=== PATIENT | female | born 1945 | race Caucasian/White ===

== ENCOUNTER → 2016-12-07 | Outpatient (CLI) | payer MEDICARE, BC ==
[2016-12-07 13:00] LABS: BICARBONATE 28.4 MEQ/L (21.0-32.0); POTASSIUM 4.2 MEQ/L (3.5-5.1); URIC ACID 4.5 MG/DL (2.6-6.0)
[2016-12-07 13:00] LABS: BLOOD, URINE NEG (NEG); GLUCOSE,URINE NEG (NEG); KETONE, URINE NEG (NEG); NITRITE,URINE NEG (NEG); PH, URINE 6.5 (5.0-8.5); URINE COLOR YELLOW (YELLW/STRAW)
[2016-12-07 13:27] LABS: FREE T3 2.26 PG/ML (2.18-3.98); FREE T4 0.83 NG/DL (0.76-1.46); HDL CHOLESTEROL 87.5 MG/DL (40.0-60.0)
[2016-12-08 23:51] LABS: THYROGLOB ABS LESS THAN 1 IU/mL (< OR = 1)
[2016-12-09 19:52] LABS: THYROGLOBULN 43.3 ng/mL (())
== END ==
LOC: CLAB 11:56
PROVIDERS: ATTEND Internal Medicine Endocrinology, Diabetes & Metabolism
DX: E11.65 Type 2 diabetes mellitus with hyperglycemia (principal); E06.3 Autoimmune thyroiditis; E03.9 Hypothyroidism, unspecified
CPT/HCPCS: 36415; 80048; 80061; 81001; 82533; 82607; 82747; 83735; 84432; 84439; 84443; 84445; 84481; 84550; 86376; 86800

== ENCOUNTER → 2017-02-01 | Outpatient (CLI) | payer MEDICARE, BC ==
[2017-02-01 13:48] LABS: BLOOD, URINE NEG (NEG); GLUCOSE,URINE 1000 mg/dL (NEG); KETONE, URINE NEG (NEG); NITRITE,URINE NEG (NEG); PH, URINE 6.5 (5.0-8.5); URINE COLOR LIGHT-YELLOW (YELLW/STRAW)
[2017-02-01 13:53] LABS: CREATININE RANDOM URINE LESS THAN 13 MG/DL (27-300)
[2017-02-01 13:56] LABS: ALKALINE PHOSPHATASE 82 U/L (45-117); ALT (GPT) 30 U/L (10-53); ANION GAP 9 MEQ/L (5-15); AST (GOT) 18 U/L (15-37); BICARBONATE 26.5 MEQ/L (21.0-32.0); BLOOD UREA NITROGEN 20 MG/DL (7-18); CHLORIDE 102 MEQ/L (98-107); GLOMERULAR FILTRATION RATE 47 ML/MIN (>89); GLUCOSE,FASTING 147 MG/DL (74-99); HDL CHOLESTEROL 83.2 MG/DL (40.0-60.0); LDL CHOLESTEROL 116 MG/DL (0-99); MAGNESIUM 2.3 MG/DL (1.5-2.5); SODIUM (NA) 137 MEQ/L (136-145); TOTAL BILIRUBIN ADULT 0.5 MG/DL (0.2-1.0)
[2017-02-01 14:02] LABS: MICRO ALBUMIN RANDOM URINE RAW LESS THAN 5.0 MG/L (0.0-30.0); MICROALBUMIN/CREAT RATIO RAND 0 MG/G CRE (0-30)
[2017-02-01 16:23] LABS: HEMOGLOBIN A1a 1.4 %; HEMOGLOBIN A1b 2.1 %; HEMOGLOBIN Ao 81.8 %; HEMOGLOBIN LA1C 2.5 %; HEMOGLOBIN P3 5.9 %
== END ==
LOC: CLAB 12:33
PROVIDERS: ATTEND Internal Medicine
DX: E06.3 Autoimmune thyroiditis (principal); E11.65 Type 2 diabetes mellitus with hyperglycemia; E61.8 Deficiency of other specified nutrient elements; E55.9 Vitamin D deficiency, unspecified; E78.5 Hyperlipidemia, unspecified; E21.3 Hyperparathyroidism, unspecified; Z79.899 Other long term (current) drug therapy; Z79.84 Long term (current) use of oral hypoglycemic drugs
CPT/HCPCS: 36415; 80053; 80061; 80156; 81001; 82043; 82306; 83036; 83519; 83525; 83735; 83970; 84100; 84206; 84681

== ENCOUNTER → 2017-09-19 | Outpatient (CLI) | payer MEDICARE, BC ==
[2017-09-19 14:58] LABS: BASOPHIL % 0.8 % (0.0-2.0); EOSINOPHIL # 0.2 TH/MM3 (0-0.4); EOSINOPHIL % 3.9 % (0.0-4.0); HEMATOCRIT 33.9 % (35.0-46.0); HEMO FLAGS DIFF FINAL; LYMPH % 29.7 % (9.0-44.0); LYMPHOCYTE # 1.6 TH/MM3 (1.0-4.8); MEAN CELL VOLUME 95.9 FL (80.0-100.0); MEAN CORPUSCULAR HEMOGLOBIN 32.2 PG (27.0-34.0); MEAN CORPUSCULAR HGB CONC 33.6 % (32.0-36.0); MONO % 10.5 % (0.0-8.0); NEUT % 55.1 % (16.0-70.0); PLATELET COUNT 178 TH/MM3 (150-450); RED BLOOD COUNT 3.54 MIL/MM3 (4.00-5.30); RED CELL DISTRIBUTION WIDTH 13.3 % (11.6-17.2); WHITE BLOOD COUNT 5.4 TH/MM3 (4.0-11.0)
[2017-09-19 15:12] LABS: AST (GOT) 30 U/L (15-37); CHLORIDE 108 MEQ/L (98-107); POTASSIUM 4.3 MEQ/L (3.5-5.1); SODIUM (NA) 142 MEQ/L (136-145)
[2017-09-19 15:37] LABS: ALKALINE PHOSPHATASE 76 U/L (45-117); ALT (GPT) 64 U/L (10-53); ANION GAP 5 MEQ/L (5-15); BICARBONATE 28.9 MEQ/L (21.0-32.0); BLOOD UREA NITROGEN 22 MG/DL (7-18); FREE T4 1.37 NG/DL (0.76-1.46); GLOMERULAR FILTRATION RATE 36 ML/MIN (>89); GLUCOSE,FASTING 151 MG/DL (74-99); MAGNESIUM 1.7 MG/DL (1.5-2.5); TOTAL BILIRUBIN ADULT 0.4 MG/DL (0.2-1.0)
== END ==
LOC: CLAB 14:28
PROVIDERS: ATTEND Specialist
DX: R78.9 Finding of unspecified substance, not normally found in blood (principal); E83.41 Hypermagnesemia; E11.9 Type 2 diabetes mellitus without complications; R94.6 Abnormal results of thyroid function studies; G45.0 Vertebro-basilar artery syndrome; Z51.81 Encounter for therapeutic drug level monitoring
CPT/HCPCS: 36415; 80053; 80156; 82607; 82746; 83735; 84439; 84443; 85025

== ENCOUNTER → 2018-01-14 | Outpatient (CLI) | payer BC, MEDICARE ==
[2018-01-14 10:34] LABS: ALBUMIN 3.3 GM/DL (3.4-5.0); AST (GOT) 9 U/L (15-37); BICARBONATE 28.1 MEQ/L (21.0-32.0); BLOOD UREA NITROGEN 19 MG/DL (7-18); CHLORIDE 105 MEQ/L (98-107); CREATININE 1.12 MG/DL (0.50-1.00); GLOMERULAR FILTRATION RATE 48 ML/MIN (>89); GLUCOSE,FASTING 238 MG/DL (74-99); SODIUM (NA) 140 MEQ/L (136-145)
[2018-01-14 10:38] LABS: ALKALINE PHOSPHATASE 98 U/L (45-117); ALT (GPT) 25 U/L (10-53); TOTAL BILIRUBIN ADULT 0.4 MG/DL (0.2-1.0); TOTAL PROTEIN 6.8 GM/DL (6.4-8.2)
[2018-01-14 15:49] LABS: HEMOGLOBIN A1C 8.2 % (4.3-6.0)
== END ==
LOC: CLAB 09:40
DX: E11.65 Type 2 diabetes mellitus with hyperglycemia (principal)
CPT/HCPCS: 36415; 80053; 82043; 83036